=== PATIENT | female | born 1990 | race African-American/Black ===

== ENCOUNTER 2018-04-29 07:19 | Emergency (ER) | payer SELFPAY ==
[~2018-04-29] VITALS: Ht 172.7 cm; Wt 113.8 kg
[2018-04-29 07:22] VITALS: Ht 172.7 cm; Wt 113.8 kg
[2018-04-29 07:45] LABS: BASOPHIL % 0.3 % (0-2); PLATELET COUNT 238 x10^3mcL (130-400)
[2018-04-29 08:02] LABS: RED CELL DISTRIBUTION WIDTH 15.8 % (11.5-14.5)
[2018-04-29 08:27] LABS: CALCIUM 9.6 mg/dL (8.5-10.1); CARBON DIOXIDE 28.1 mmol/L (21-32); CHLORIDE SERUM 103 mmol/L (98-107); CREATININE SERUM 1.1 mg/dL (0.6-1.0); GFR1 > 60 mL/min; GLUCOSE SERUM 99 mg/dL (74-106); POTASSIUM SERUM 3.5 mmol/L (3.5-5.1); SODIUM SERUM 140 mmol/L (136-145)
[2018-04-29 08:31] LABS: ALBUMIN 3.8 g/dL (3.4-5.0); ALKALINE PHOSPHATASE 77 U/L (46-116); ALT/SGPT 25 U/L (14-59); AST/SGOT 24 U/L (15-37); LIPASE 233 IU/L (73-393)
[2018-04-29 08:41] LABS: TOTAL PROTEIN, SERUM 8.4 g/dL (6.4-8.2)
[2018-04-29 10:20] VITALS: BP 124/81
== END 2018-04-29 10:20 | disposition home or self-care (01) ==
LOC: ED 07:19
PROVIDERS: Emergency Medicine
DX: N39.0 Urinary tract infection, site not specified (principal)
CPT/HCPCS: 36415; J1885; Q0162